=== PATIENT | female | born 1975 | race African-American/Black ===

== ENCOUNTER 2016-07-25 08:58 | Outpatient (CLI) | payer OTHER | END 2016-07-25 10:15 | disposition home or self-care (01) | LOC: MAMMO 08:58 | DX: Z12.31 Encounter for screening mammogram for malignant neoplasm of breast (principal) | CPT/HCPCS: G0202-TC ==

== ENCOUNTER 2017-10-03 15:37 | Emergency (ER) | payer OTHER ==
[~2017-10-03] VITALS: Ht 157.5 cm; Wt 71.2 kg
[2017-10-03 15:42] VITALS: BP 129/69; TEMP 98.1
== END 2017-10-03 16:01 | disposition home or self-care (01) ==
LOC: ED 15:37
DX: O26.851 Spotting complicating pregnancy, first trimester (principal)
CPT/HCPCS: 99281

== ENCOUNTER 2018-10-06 13:45 | Outpatient (CLI) | payer OTHER | END 2018-10-06 16:00 | disposition home or self-care (01) | LOC: MAMMO 13:45 | DX: Z12.31 Encounter for screening mammogram for malignant neoplasm of breast (principal) ==

== ENCOUNTER 2022-08-16 20:48 | Emergency (ER) | payer OTHER ==
[~2022-08-16] VITALS: Ht 157.5 cm; Wt 72.6 kg
[2022-08-16 23:17] VITALS: BP 106/5; TEMP 98
== END 2022-08-16 23:17 | disposition home or self-care (01) ==
LOC: ED 20:48
DX: T78.2XXA Anaphylactic shock, unspecified, initial encounter (principal); W57.XXXA Bitten or stung by nonvenomous insect and other nonvenomous arthropods, initial encounter
CPT/HCPCS: 99284; J0171; J1200; J2930